=== PATIENT | female | born 1985 | race Two or more races ===

== ENCOUNTER 2016-12-11 12:50 | Emergency (ER) | payer SELFPAY ==
[~2016-12-11 12:50] MED LIST: BACTRIM DS TAB1 EACH PO; CARAFATE1 G2 PO; LEVOTHYROXINE137 MC1 PO; LORTAB 5-500 T1 EAC1 PO; METHIMAZOLE10 MG PO; METOPROLOL TART50 MG PO; NORCO 5-325 TA1 EACH PO; PRILOSEC OTC20 M1 PO; PROVENTIL HFA6.7 G1 IH; TESSALON PERLE100 M1 PO; ZITHROMAX250 M1 PO; ZOFRAN ODT8 MG/TAB PO; ZOFRAN8 MG PO; [UNRECOGNIZED DRUG - OTHER] PO
[2016-12-11] MEDS ORDERED: SYNTHROID150 MC1 PO (13:13)
[2016-12-11] MEDS ORDERED: MELOXICAM15 M1 PO (13:18)
[2016-12-11] MEDS ORDERED: OMEPRAZOLE20 M3 PO (13:18)
[2016-12-11] MEDS ORDERED: VITAMIN D (13:19)
[2016-12-11 13:43] LABS: BASO % 0.3 % (0-2); EOS % 0.7 % (0-7); EOSINOPHIL ABSOLUTE COUNT 0.1 tho/cmm (0.0-0.7); HGB-HEMOGLOBIN 12.1 gm/dl (12.0-15.5); IMMATURE GRANULOCYTES ABSOLUTE 0.02 tho/cmm (0-0.03); IMMATURE GRANULOCYTES PERCENT 0.2 % (0-0.3); LYMPH % 28.5 % (20-45); LYMPH ABSOLUTE COUNT 2.5 tho/cmm (0.8-4.5); MCH (MEAN CORPUSCULAR HGB) 27.9 pg (28.0-32.0); MCHC MEAN CORPUSCULAR HGB CONC 33.6 % (32.0-36.0); MCV (MEAN CELL VOLUME) 83.1 fl (82.0-96.0); MEAN PLATELET VOLUME 10.1 cmc (9.4-12.4); MONO % 6.6 % (0-12); MONOCYTE ABSOLUTE COUNT 0.6 tho/cmm (0.0-1.2); NEUTROPHIL ABSOLUTE COUNT 5.7 tho/cmm (1.6-8.0); NEUTROPHIL-AUTOMATED 5.7 tho/cmm (1.6-8.0); NEUTROPHILS % 63.7 % (40-80); PLATELET COUNT 303 tho/cmm (150-450); RED BLOOD COUNT 4.33 mil/cmm (4.00-5.20); RED CELL DISTRIBUTION WIDTH 13.9 % (12.4-16.4); WHITE BLOOD COUNT 8.9 tho/cmm (4.0-10.0)
[2016-12-11 13:59] LABS: ANION GAP 10 mmol/L (0-20); BLOOD UREA NITROGEN 14 mg/dl (6-24); CALCIUM 8.6 mg/dl (8.5-10.5); CARBON DIOXIDE-VENOUS 29 mmol/L (22-32); CHLORIDE 105 mmol/l (96-110); CREATININE 0.72 mg/dl (0.50-1.10); GLUCOSE 107 mg/dL (70-110); POTASSIUM 4.1 mmol/L (3.7-5.1); SODIUM 140 mmol/L (135-145); eGFR VALUE FOR BLACK >90 mL/Min
[2016-12-11] MEDS ORDERED: IBUPROFEN800 M1 PO (14:33)
== END 2016-12-11 15:41 ==
LOC: EDMED 12:50
PROVIDERS: Emergency Medicine
DX: R07.89 Other chest pain (principal); R20.2 Paresthesia of skin; R51 Headache; K59.00 Constipation, unspecified; E03.9 Hypothyroidism, unspecified; Z79.890 Hormone replacement therapy; Z79.899 Other long term (current) drug therapy